=== PATIENT | female | born 1940 | race Caucasian/White ===

== ENCOUNTER 2020-01-30 10:31 | Emergency (ER) | payer MEDICARE, OTHER ==
[2020-01-30] MEDS ORDERED: Diphtheria,Pertussis(Acell),Tetanus Vaccine 0.5 ML Syringe IM ONE (10:50)
[2020-01-30] MEDS ORDERED: Bacitracin Oint 1 GM U/D Packet TOP ONE (10:50)
--- NOTE | 2020-01-30 11:02 | EDM.PDOC ---
ED HPI GENERAL MEDICAL PROBLEM - General Chief Complaint: Head Injury Stated Complaint: PT FELL HIT HEAD Time Seen by Provider: 01/30/20 10:32 Source of Information: Reports: Patient History Limitations: Reports: No Limitations - History of Present Illness INITIAL COMMENTS - FREE TEXT/NARRATIVE: HISTORY AND PHYSICAL: History of present illness: Patient is a 79-year-old female who presents to the emergency room with complaints of falling and hitting her left side of her body. [place] and had stepped down to put a letter in the mail compartment when she turned around to talk with someone she tripped over the curb falling onto her left side. She does have a superficial abrasion to the left brow, left elbow, left hand. She states she is not concerned necessarily about the fall but thought maybe the laceration on her elbow needed sutures. She did not have any loss of consciousness, change in vision, urinary or fecal incontinence. She denies any weakness, numbness/tingling or deficits. Patient denies any fever, chills, headache, syncope or near syncope. Denies any chest pain, back pain, shortness of breath or cough. Denies any abdominal pain, nausea, vomiting, diarrhea, constipation or dysuria. Has not noted any blood in urine or stool. Patient has been eating and drinking appropriately. Review of systems: As per history of present illness and below otherwise all systems reviewed and negative. Past medical history: As per history of present illness and as reviewed below otherwise noncontributory. Surgical history: As per history of present illness and as reviewed below otherwise noncontributory. Social history: See social history for further information Family history: As per history of present illness and as reviewed below otherwise noncontributory. Physical exam: General: Well developed and well nourished. Alert and orientated x 3. Nontoxic in appearance and in no acute distress. Vital signs are stable and have been reviewed by me. Nursing notes were reviewed. HEENT: Soft tissue swelling with abrasion along the left lateral eyebrow. Scalp is nontender, normocephalic, pupils equal and reactive bilaterally, negative for conjunctival pallor or scleral icterus, mucous membranes moist, TMs normal bilaterally, throat clear, neck supple, nontender, trachea midline. No drooling or trismus noted. No meningeal signs. No hot potato voice noted. Lungs: Clear to auscultation, breath sounds equal bilaterally, chest nontender. Normal work of breathing, no accessory muscles used. Heart: S1S2, regular rate and rhythm without overt murmur Abdomen: Soft, nondistended, nontender. Negative for masses or hepatosplenomegaly. Negative for costovertebral tenderness. Pelvis: Stable nontender. C-spine/Back: No pinpoint vertebral tenderness upon palpation. No crepitus, step-offs or obvious deformities. Patient is ambulatory into the emergency room without difficulty or deficit. Able to rock back on heels and walk on toes. Denies any urinary or fecal incontinence. Denies any numbness, tingling or saddle paresthesia. No concerns of serious infection, fracture or cord compression, or cauda equina syndrome. Deep tendon reflexes brisk bilaterally. Skin: 1 cm abrasion to the left lateral eyebrow. 4 cm linear skin tear to the left elbow. 5 cm skin tear across the dorsal aspect of the left mid hand. Otherwise skin is intact, warm, dry. No lesions or rashes noted. Hematologic: No petechiae or purpra. Mucosa appropriate color and normal nail bed color and refill. Extremities: Atraumatic, moves all extremities per self without difficulty or deficits, negative for cords or calf pain. Neurovascular unremarkable. Neuro: Awake, alert, oriented. Cranial nerves II through XII unremarkable. Cerebellum unremarkable. Motor and sensory unremarkable throughout. Exam nonfocal. Psychiatric: Mood and affect are appropriate. Normal thought process. Answering questions appropriately. Notes: Wound care was completed. Area was thoroughly cleansed with chlorhexidine and wound wash. She does have skin tears/abrasions. Nothing that is suturable. Steri-Strips have been applied to the left elbow and left hand. Head CT shows periorbital soft tissue swelling on the left consistent with laceration. Globe appears intact. Age-appropriate, no acute intracranial process traumatic findings. I have spoken with the patient/caregiver and discussed today's findings, in addition to providing specific details for plan of care. Reassessment at the time of disposition demonstrates that the patient is in no acute distress. The patient has remained stable throughout the entire ED visit and is without objective evidence for acute process requiring urgent intervention or hospitalization. The patient is stable for discharge, counseling was provided and we discussed in great detail signs and symptoms that would prompt them to return to the Emergency Department. Medication, follow up and supportive care measures were reviewed and discussed. Voices understanding and is agreeable to plan of care. Denies any further questions or concerns at this time. Diagnostics: Head CT Therapeutics: Tdap, wound care, Steri-Strips Prescription: None Impression: Fall Head injury Skin tear Plan: 1. Please review and follow the head injury instructions that we discussed and are printed in your discharge packet. 2. Limit any physical activities and follow cognitive rest (decrease screen time, reading, tv, etc..) over the next 24 hours pending resolution of symptoms. 3. Tylenol and/or ibuprofen as needed for pain management. 4. We encourage you to follow up with your primary care provider and/or recommended specialist in the next few days for re-evaluation and further care/management. If your symptoms should worsen, new symptoms develop or any of the signs and symptoms we discussed should arise please return to the emergency room or call 911 (if needed). Definitive disposition and diagnosis as appropriate pending reevaluation and review of above. left eyebrow, hematoma Pain Score (Numeric/FACES): 2 - Related Data Allergies Allergy/AdvReac Type Severity Reaction Status Date / Time No Known Allergies Allergy Verified 01/30/20 10:54 Home Meds: Home Meds . [No Known Home Meds] 01/30/20 [History] Past Medical History - Past Health History Medical/Surgical History: Denies Medical/Surgical History - Infectious Disease History Infectious Disease History: Reports: Chicken Pox, Measles, Mumps Social & Family History - Family History Family Medical History: Noncontributory - Tobacco Use Smoking Status *Q: Never Smoker - Recreational Drug Use Recreational Drug Use: No ED ROS GENERAL - Review of Systems Review Of Systems: Comprehensive ROS is negative, except as noted in HPI. ED EXAM, HEAD INJURY - Physical Exam Exam: See Below (See dictation) ED LACERATION/WOUND & ISABELL PROC - Laceration/Wound Repair Left elbow Lac/wound length in cm: 4 Appearance: Irregular, Other (Skin tear) Distal NVT: Neuro & Vascular Intact, No Tendon Injury Skin Prep: Chlorhexidine (Hibiciens), Saline Saline irrigation (cc's): 250 Exploration/Debridement/Repair: Wound Explored, In a Bloodless Field, Explored to Base, No Foreign Material Found Closed with: Steri-Strips Drain Placement: No Sterile Dressing Applied: None Tetanus Status Addressed: Yes Complications: No Left hand Lac/wound length in cm: 5 Appearance: Superficial, Clean, Other (Skin tear) Skin Prep: Chlorhexidine (Hibiciens), Saline Saline irrigation (cc's): 250 Exploration/Debridement/Repair: Wound Explored, In a Bloodless Field, Explored to Base, No Foreign Material Found Closed with: Steri-Strips Drain Placement: No Sterile Dressing Applied: None Tetanus Status Addressed: Yes Complications: No Course - Vital Signs Last Recorded V/S: Last Vital Signs Temp 97.4 F 01/30/20 10:51 Pulse 100 01/30/20 10:51 Resp 18 01/30/20 10:51 BP 162/84 H 01/30/20 10:51 Pulse Ox 97 01/30/20 10:51 - Orders/Labs/Meds Orders: Active Orders 24 hr Category Date Time Status Vaccines to be Administered [RC] PER UNIT ROUTINE Care 01/30/20 10:50 Active Meds: Medications Discontinued Medications Generic Name Dose Route Start Last Admin Trade Name Paolo PRN Reason Stop Dose Admin Bacitracin 1 dose 01/30/20 10:50 Bacitracin Oint 1 Gm TOP 01/30/20 10:51 ONETIME ONE Diphtheria/Tetanus/Acell Pertussis 0.5 ml 01/30/20 10:50 Adacel IM 01/30/20 10:51 .ONCE ONE Departure - Departure Time of Disposition: 11:32 Disposition: Home, Self-Care 01 Clinical Impression: Skin tear Fall Qualifiers: Encounter type: initial encounter Qualified Code(s): W19.XXXA - Unspecified fall, initial encounter Head injury Qualifiers: Encounter type: initial encounter Qualified Code(s): S09.90XA - Unspecified injury of head, initial encounter - Discharge Information Instructions: Skin Tear, [id number], Head Injury, Adult, [id number] Forms: ED Department Discharge Additional Instructions: The following information is given to patients seen in the emergency department who are being discharged to home. This information is to outline your options for follow-up care. We provide all patients seen in our emergency department with a follow-up referral. The need for follow-up, as well as the timing and circumstances, are variable depending upon the specifics of your emergency department visit. If you don't have a primary care physician on staff, we will provide you with a referral. We always advise you to contact your personal physician following an emergency department visit to inform them of the circumstance of the visit and for follow-up with them and/or the need for any referrals to a consulting specialist. The emergency department will also refer you to a specialist when appropriate. This referral assures that you have the opportunity for follow-up care with a specialist. All of these measure are taken in an effort to provide you with optimal care, which includes your follow-up. Under all circumstances we always encourage you to contact your private physician who remains a resource for coordinating your care. When calling for follow-up care, please make the office aware that this follow-up is from your recent emergency room visit. If for any reason you are refused follow-up, please contact the [facility] Emergency Department at and asked to speak to the emergency department charge nurse. [facility] [address] [place], [place] [id number] [place] [address] Thank you for choosing the [facility] emergency department in [place] for your medical needs today. It was a pleasure caring for you. Today you were seen in the emergency department for fall. 1. Please review and follow the head injury instructions that we discussed and are printed in your discharge packet. 2. Limit any physical activities and follow cognitive rest (decrease screen time, reading, tv, etc..) over the next 24 hours pending resolution of symptoms. 3. Tylenol and/or ibuprofen as needed for pain management. 4. We encourage you to follow up with your primary care provider and/or recommended specialist in the next few days for re-evaluation and further care/management. If your symptoms should worsen, new symptoms develop or any of the signs and symptoms we discussed should arise please return to the emergency room or call 911 (if needed). Sepsis Event Note (ED) - Evaluation Sepsis Screening Result: No Definite Risk - Focused Exam Vital Signs: Vital Signs Temp Pulse Resp BP Pulse Ox 01/30/20 10:51 97.4 F 100 18 162/84 H 97 - My Orders Last 24 Hours: My Active Orders 01/30/20 10:50 Vaccines to be Administered [RC] PER UNIT ROUTINE - Assessment/Plan Last 24 Hours: My Active Orders 01/30/20 10:50 Vaccines to be Administered [RC] PER UNIT ROUTINE
--- NOTE | 2020-01-30 11:29 | CT ---
INDICATION: Trauma COMPARISON: None TECHNIQUE: CT examination of the head was performed as axial sections without intravenous contrast. Images were obtained from the vertex of the skull through the skull base. Please note that all CT scans at this facility use dose modulation, iterative reconstruction, and/or weight-based dosing when appropriate to reduce radiation dose to as low as reasonably achievable. FINDINGS: The brain shows no sign of mass lesion, mass effect, hemorrhage, or edema. There is mild atrophy and mild white matter disease. This is proportionate to patient age. The visualized portions of the orbits are normal in appearance. The osseous structures are normal in their appearance with no sign of abnormality in the skull base or calvarium. IMPRESSION: Age-appropriate involutional changes. No acute intracranial posttraumatic findings. There is periorbital soft tissue swelling on the left and gas within soft tissues consistent with a laceration. The globe appears intact. Please be aware that this is not a formal study of the orbits or facial bones though no orbital region fracture is identified Please note that all CT scans at this facility use dose modulation, iterative reconstruction, and/or weight-based dosing when appropriate to reduce radiation dose to as low as reasonably achievable. Dictated by Toan Braxton MD @ Jan 30 2020 11:24AM Signed by Dr. Toan Braxton @ Jan 30 2020 11:28AM
== END 2020-01-30 11:46 | disposition home or self-care (01) ==
LOC: MW.ED 10:31
DX: S09.90XA Unspecified injury of head, initial encounter (principal); S51.012A Laceration without foreign body of left elbow, initial encounter; S61.412A Laceration without foreign body of left hand, initial encounter; S00.212A Abrasion of left eyelid and periocular area, initial encounter; Z23 Encounter for immunization; W01.0XXA Fall on same level from slipping, tripping and stumbling without subsequent striking against object, initial encounter; Y92.242 Post office as the place of occurrence of the external cause
CPT/HCPCS: 12004; 70450; 70450-26; 90471; 90715; 99283-25; 99284

== ENCOUNTER 2020-02-08 20:12 | Emergency (ER) | payer MEDICARE, OTHER ==
--- NOTE | 2020-02-08 20:52 | EDM.PDOC ---
ED HPI GENERAL MEDICAL PROBLEM - General Chief Complaint: Skin Complaint Stated Complaint: LT HAND LACERATION BLEEDING Time Seen by Provider: 02/08/20 20:17 - History of Present Illness INITIAL COMMENTS - FREE TEXT/NARRATIVE: HISTORY AND PHYSICAL: History of present illness: 79-year-old female who fell last week and got a skin tear on the dorsum of her left hand. Today while she was changing the dressing she had some blood s purting out of an area near where one of the veins was injured. She came in for evaluation. After the wound has been washed, dressed and clean and was some slight direct pressure there is no more bleeding. No surrounding erythema. Denies any fever. Tetanus was updated last visit. Review of systems: A 10-point review of systems, other than pertinent positives and negatives as stated per HPI, is otherwise negative. Past medical history: As per history of present illness and as reviewed below otherwise noncontributory. Surgical history: As per history of present illness and as reviewed below otherwise noncontributory. Social history: No reported history of drug or alcohol abuse. Family history: As per history of present illness and as reviewed below otherwise noncontributory. Physical exam: VITAL SIGNS: Reviewed. GENERAL: Concerned about condition but not toxic or in distress. HEAD: No signs of head trauma. EYES: Pupils are equal. Extraocular motions intact. EARS: Hearing grossly intact. MOUTH: Oropharynx is normal. NECK: No adenopathy, no JVD. CHEST: Comfortably no adventitious audible breath sounds. CARDIAC: Regular rate and rhythm. VASCULAR: Peripheral pulses normal and equal in all extremities. ABDOMEN: Soft, without detectable tenderness. No sign of distention. No rebound or guarding, and no masses palpated. MUSCULOSKELETAL: Good range of motion of all major joints. Extremities without clubbing, cyanosis or edema. NEUROLOGIC EXAM: Alert and oriented x 3. No focal sensory or motor deficits. Speech normal. Follows commands. PSYCHIATRIC: Mood normal. SKIN: 8 cm skin tear on the dorsum of the left hand. Appears to be healing. There are some hemorrhagic crusting. Clean dry and intact now. Adequate hemostasis. Initial Differential Diagnosis & Plan: Laceration, secondary bleeding, infection No evidence of infection, distal neurovascular function is intact. Appears to have been venous bleeding. I have cleaned and redressed the wound. Bleeding is controlled. There is no hemorrhage now. No signs of infection or distal compromise. - Related Data Allergies Allergy/AdvReac Type Severity Reaction Status Date / Time No Known Allergies Allergy Verified 02/08/20 20:25 Home Meds: Home Meds Mupirocin Oint [Bactroban Oint] 22 gm TP BID 14 Days tube 02/08/20 [Rx] Past Medical History - Past Health History Medical/Surgical History: Denies Medical/Surgical History - Infectious Disease History Infectious Disease History: Reports: Chicken Pox, Measles, Mumps Social & Family History - Family History Family Medical History: Noncontributory - Tobacco Use Tobacco Use Status *Q: Never Tobacco User - Recreational Drug Use Recreational Drug Use: No Drug Use in Last 12 Months: No ED ROS GENERAL - Review of Systems Review Of Systems: See Below (noted) ED EXAM, SKIN/RASH Exam: See Below (noted) Course - Vital Signs Last Recorded V/S: Last Vital Signs Temp 98.3 F 02/08/20 20:23 Pulse 104 H 02/08/20 20:23 Resp 17 02/08/20 20:23 BP 166/92 H 02/08/20 20:23 Pulse Ox 97 02/08/20 20:23 Departure - Departure Time of Disposition: 20:49 Disposition: Home, Self-Care 01 Clinical Impression: Laceration, Venous bleed - Discharge Information *PRESCRIPTION DRUG MONITORING PROGRAM REVIEWED*: Not Applicable *COPY OF PRESCRIPTION DRUG MONITORING REPORT IN PATIENT REMINGTON: Not Applicable Prescriptions: Mupirocin Oint [Bactroban Oint] 22 gm TP BID 14 Days tube Instructions: Laceration Care, Adult, Nonsutured Laceration Care Referrals: PCP,None [Primary Care Provider] - Forms: ED Department Discharge Additional Instructions: The following information is given to patients seen in the emergency department who are being discharged to home. This information is to outline your options for follow-up care. We provide all patients seen in our emergency department with a follow-up referral. The need for follow-up, as well as the timing and circumstances, are variable depending upon the specifics of your emergency department visit. If you don't have a primary care physician on staff, we will provide you with a referral. We always advise you to contact your personal physician following an emergency department visit to inform them of the circumstance of the visit and for follow-up with them and/or the need for any referrals to a consulting specialist. The emergency department will also refer you to a specialist when appropriate. This referral assures that you have the opportunity for follow-up care with a specialist. All of these measure are taken in an effort to provide you with optimal care, which includes your follow-up. Thank you for coming to the [facility] urgency department for your care today. It was Dr. Gomez's pleasure to take care of you. [facility] [address] [place] [id number] [facility] [address] [place] [address] Your wound will be healing by secondary intention. You had butterfly closure before. It appears he had some venous bleeding. It is now controlled. We have washed out your wound and cleaned and redressed it. Please use the antibiotic ointment daily you have been given. There is no signs of infection at this point. Your tetanus is up-to-date. Please return for fever, worsening or any other concerns. We are always happy to see you. Under all circumstances we always encourage you to contact your private physician who remains a resource for coordinating your care. When calling for follow-up care, please make the office aware that this follow-up is from your recent emergency room visit. If for any reason you are refused follow-up, please contact the [facility] Emergency Department at and asked to speak to the emergency department charge nurse. Sepsis Event Note (ED) - Evaluation Sepsis Screening Result: No Definite Risk - Focused Exam Vital Signs: Vital Signs Temp Pulse Resp BP Pulse Ox 02/08/20 20:23 98.3 F 104 H 17 166/92 H 97
== END 2020-02-08 21:25 | disposition home or self-care (01) ==
LOC: MW.ED 20:12
DX: S61.412A Laceration without foreign body of left hand, initial encounter (principal); R23.3 Spontaneous ecchymoses; W19.XXXA Unspecified fall, initial encounter
CPT/HCPCS: 99283

== ENCOUNTER 2021-07-11 14:21 | Inpatient (IN) | payer MEDICARE, OTHER ==
[2021-07-11 15:49] LABS: BLOOD UREA NITROGEN,BUN 14 mg/dL (7.0-18.0); CARBON DIOXIDE,CO2 25.2 mmol/L (21.0-32.0); CHLORIDE,CL 102 mmol/L (98-107); GLUCOSE RANDOM 93 mg/dL (74-106); POTASSIUM,K 3.9 mmol/L (3.5-5.1); SODIUM,NA 137 mmol/L (136-145)
[2021-07-11] MEDS: Metoprolol Tartrate 5 MG/5 ML SDV IVPUSH ONE ×2 (16:39→17:32)
[2021-07-11] MEDS ORDERED: Ondansetron 4 MG/2 ML SDV IVPUSH PRN (19:10)
[2021-07-11] MEDS ORDERED: Acetaminophen 325 MG Tab PO PRN (19:10)
[2021-07-11] MEDS ORDERED: Lactated Ringers 1,000 ML IV SCH (19:15)
[2021-07-11] MEDS ORDERED: Metoprolol Tartrate 25 MG Tab PO SCH (19:15)
[2021-07-11] MEDS ORDERED: cefTRIAXone 1 GM in Sodium Chloride 0.9% 50 ML IV SCH (20:00)
[2021-07-11] MEDS: Heparin Sodium 5,000 Units/ML Vial SUBCUT SCH (20:59)
[2021-07-12] MEDS ORDERED: Furosemide 40 MG/4 ML VIAL IVPUSH ONE (00:50)
[2021-07-12] MEDS ORDERED: Diltiazem 25 MG/5 ML SDV IVPUSH PRN (00:52)
[2021-07-12] MEDS: Heparin Sodium 5,000 Units/ML Vial SUBCUT SCH ×2 (03:25→11:51)
[2021-07-12 07:56] LABS: BLOOD UREA NITROGEN,BUN 16 mg/dL (7.0-18.0); CARBON DIOXIDE,CO2 29.3 mmol/L (21.0-32.0); CHLORIDE,CL 100 mmol/L (98-107); GLUCOSE RANDOM 91 mg/dL (74-106); POTASSIUM,K 4.1 mmol/L (3.5-5.1); SODIUM,NA 139 mmol/L (136-145)
[2021-07-12] MEDS ORDERED: Metoprolol Tartrate 25 MG Tab PO SCH (12:00)
== END 2021-07-12 15:30 | disposition home or self-care (01) | DRG 309 ==
LOC: MW.ED 14:21 → MW.MS 17:00
PROVIDERS: ADMIT Student in an Organized Health Care Education/Training Program; ATTEND Student in an Organized Health Care Education/Training Program
DX: I48.91 Unspecified atrial fibrillation (principal); N39.0 Urinary tract infection, site not specified; R41.82 Altered mental status, unspecified; I16.0 Hypertensive urgency; Z20.822 Contact with and (suspected) exposure to COVID-19; Z79.01 Long term (current) use of anticoagulants
CPT/HCPCS: 36415; 70450; 71045; 80053; 81001; 83735; 85025; 87086; 93005; J3490; U0002; 80048; 80061; 84100; 84439; 84443; 84484; 93306; 99285-25; A9270-GY; J0696; J1644; J1940; J7120